=== PATIENT | male | born 1995 | race Two or more races ===

== ENCOUNTER → 2017-03-29 | Day surgery (SDC) | payer OTHER ==
[~2017-03-29] MED LIST: ALLERGY MEDICATION PO; FAMOTIDINE PO; NEXIUM PO; SYMBICORT80 INH
--- NOTE | ~2017-03-29 | OR ---
Unit #: [id number] #: [id number] Patient: DONALD FERNÁNDEZ [id number] [address] [address] [id number] O MR#: [id number] NAME: DONALD FERNÁNDEZ ROOM: Date of Procedure: 03/29/2017 Admission Date: 03/29/2017 Surgeon: Castillo Patricio M.D. : 1995 Attending Physician: Castillo Patricio M.D. Primary Care Physician: Neena Primary Care Physician PROCEDURE OPERATIVE NOTE PROCEDURE PERFORMED Esophagogastroduodenoscopy with biopsy. INDICATIONS Dysphagia, history of eosinophilic esophagitis. MEDICATIONS Monitored anesthesia. POSTOPERATIVE FINDINGS 1. Mild nonspecific inflammation, esophagus. Biopsies taken in mid esophagus looking for eosinophilic esophagitis. 2. Mild gastritis along with (1) on the stomach. Gastric biopsy is taken (2) . 3. A 1 cm flat superficial ulcer on the duodenal bulb. PLAN 1. Continue PPI therapy and current treatment. 2. Followup in the office with biopsy results. DESCRIPTION OF PROCEDURE The patient was explained all the procedure risks and benefits along with the risks and benefits of anesthesia. He was brought to the endoscopy room. Propofol anesthesia was given. Bite block was placed. The scope was passed down the mouth and esophagus, stomach, duodenum, and distal duodenum. Findings as described. Biopsies taken. Gently, I pulled the scope out of patient's mouth. He tolerated the procedure well. No immediate complications seen. Dictated by... Amol Brown/ana laura TD: 03/29/2017 11:53 JOB #: [id number] CC: Zeenat Allen M.D. Unit #: [id number] #: [id number] Patient: DONALD FERNÁNDEZ PROCEDURE OPERATIVE NOTE Page 1 of 1 X Castillo Patricio MD X PROCEDURE OPERATIVE NOTE
== END | disposition home or self-care (01) ==
LOC: COPS 07:08
DX: K20.0 Eosinophilic esophagitis (principal); K29.50 Unspecified chronic gastritis without bleeding; K26.9 Duodenal ulcer, unspecified as acute or chronic, without hemorrhage or perforation; J45.909 Unspecified asthma, uncomplicated; K21.9 Gastro-esophageal reflux disease without esophagitis; Z91.048 Other nonmedicinal substance allergy status; Z79.51 Long term (current) use of inhaled steroids; Z79.899 Other long term (current) drug therapy
CPT/HCPCS: 88305; 88312; J2250